=== PATIENT | male | born 1950 | race Caucasian/White ===

== ENCOUNTER 2016-07-11 07:28 | Day surgery (SDC) | payer OTHER, MEDICARE ==
[2016-07-10 10:57] VITALS: BMI 32.5
--- NOTE | 2016-07-11 06:20 | HP ---
History & Physical Update - History History: No Change - Physical Physical: No Change - Assessment Assessment: No Change - Plan Plan: No Change
[~2016-07-11 07:28] MED LIST: CYCLOPENTOLATE HCL 1% OPHTH SOLN 2 ML BOTTLE OP SCH; MOXIFLOXACIN HCL 0.5% OPHTHALMIC 3 ML BOTTLE OP SCH; PHENYLEPHRINE 2.5% OPHTH SOLN 15 ML BOTTLE OP SCH; TOBRAMYCIN/DEXAMETHASONE OPHTH. OINTMENT 1 TUBE OD ONE; TROPICAMIDE 1% OPHTH SOLN 15 ML BOTTLE OP SCH
[2016-07-11] MEDS ORDERED: MOXIFLOXACIN HCL 0.5% OPHTHALMIC 3 ML BOTTLE ONE (07:38)
[2016-07-11] MEDS ORDERED: TROPICAMIDE 1% OPHTH SOLN 15 ML BOTTLE ONE (07:38)
[2016-07-11] MEDS ORDERED: CYCLOPENTOLATE HCL 1% OPHTH SOLN 2 ML BOTTLE ONE (07:38)
[2016-07-11] MEDS ORDERED: PHENYLEPHRINE 2.5% OPHTH SOLN 15 ML BOTTLE ONE (07:39)
[2016-07-11 07:56] VITALS: TEMP 97.9
[2016-07-11] MEDS ORDERED: PROPOFOL 20 ML ONE (08:58)
[2016-07-11] MEDS ORDERED: MIDAZOLAM HCL 2 MG/2 ML SINGLE DOSE VIAL ONE (08:58)
[2016-07-11] MEDS ORDERED: LIDOCAINE HCL/PF 2% SDV 5ML VIAL ONE (08:58)
[2016-07-11] MEDS ORDERED: TETRACAINE 0.5% OPHTH SOLN 2 ML BOTTLE TP ONE (09:08)
[2016-07-11] MEDS ORDERED: LIDOCAINE HCL/PF 2% SDV 5ML VIAL INF ONE (09:13)
[2016-07-11] MEDS ORDERED: BUPIVACAINE HCL/PF 0.75% 10 ML VIAL RB ONE (09:13)
[2016-07-11] MEDS ORDERED: POVIDONE-IODINE 5% OPHTHALMIC PREP 30 ML SOLUTION OD ONE (09:16)
[2016-07-11] MEDS ORDERED: TRYPAN BLUE 0.5 ML DISP.SYRIN IO ONE (09:23)
[2016-07-11] MEDS ORDERED: BSS (NA/CA/MG/K) BALANCED SALT SOLUTION OPHTH SOLN 15 ML BOTTLE OD ONE (09:23)
[2016-07-11] MEDS ORDERED: LIDOCAINE HCL 1% PRESERVATIVE FREE - 30ML VIAL IO ONE (09:23)
[2016-07-11] MEDS ORDERED: CHONDROITIN SU A/HYALUR SOD 1 KIT IO ONE (09:23)
[2016-07-11] MEDS ORDERED: EPINEPHrine 1:1,000 1 MG/1 ML - 30ML VIAL (INJECTION) SQ ONE (09:29)
[2016-07-11] MEDS ORDERED: TOBRAMYCIN/DEXAMETHASONE OPHTH. OINTMENT 1 TUBE OD ONE (09:43)
[2016-07-11 10:34] VITALS: BP 130/84; PULSE 72
--- NOTE | 2016-07-11 15:08 | OP ---
DATE OF OPERATION: 07/11/2016 SURGEON: Navi Colorado MD PREOPERATIVE DIAGNOSIS: Cataract, right eye. OPERATION: Phacoemulsification and intraocular lens implantation, right eye. POSTOPERATIVE DIAGNOSIS: Cataract, right eye. ANESTHESIA: Local with intravenous sedation. COMPLICATIONS: None. BLOOD LOSS: None. SPECIMEN: None. BRIEF HISTORY: The patient is a 65-year-old man with a past medical history of asthma and cardiac disease, who presented with decreased vision in the right eye down to 20/400 due to a 2 to 3+ nuclear sclerotic lens with anterior vacuolar changes. After the risks, benefits and alternatives to cataract surgery were discussed with the patient, he consented to the surgery for the right eye. DESCRIPTION: The patient was brought to the operating room and administered retrobulbar block after receiving intravenous sedation. He was then prepped and draped in the usual sterile fashion and an eyelid speculum was inserted in the right eye. A paracentesis was made and the anterior chamber was inflated with nonpreserved lidocaine followed by injection of air, trypan blue dye, and Viscoat, due to dense anterior cortical changes limiting the anterior capsule view. A groove was made in the temporal clear cornea which was tunneled forward with a crescent blade. The anterior chamber was entered with a 2.75 keratome. The cystotome was used to make an incision in the center of the capsule and a continuous curvilinear capsulorrhexis was created. The lens was hydrodissected until it was found to rotate freely within the capsular bag. Phacoemulsification was then used to remove the lens in its entirety. Irrigation and aspiration was used to remove residual cortical material. The anterior chamber and capsular bag were reinflated with ProVisc and a 19.0 diopter SN60WF AcrySof intraocular lens was injected into the capsular bag using the [place] injector. The lens was dialed into place using a [place]ins[place] hook. Irrigation and aspiration was used to remove residual viscoelastic. The wound was stromally hydrated until it was found to be watertight and the eye within an appropriate pressure. The eyelid speculum was removed from the eye and TobraDex ointment and a patch and shield were placed over the right eye. The patient was transferred to the recovery room in stable condition and will follow up tomorrow. Daniel [id number] MTDD
== END 2016-07-11 14:39 | disposition home or self-care (01) ==
LOC: JASU-SURG 07:28
PROVIDERS: ATTEND Ophthalmology
PROC: 08RJ3JZ Replacement of Right Lens with Synthetic Substitute, Percutaneous Approach (ICD-10-PCS; principal; 2016-07-11 09:00)
DX: H25.11 Age-related nuclear cataract, right eye (principal); H18.891 Other specified disorders of cornea, right eye

== ENCOUNTER 2017-06-12 08:43 | Day surgery (SDC) | payer OTHER, MEDICARE ==
[2017-06-11 09:40] VITALS: BMI 32.5
--- NOTE | 2017-06-12 05:59 | HP ---
History & Physical Update - History History: No Change (see H&P in chart, [place]) - Physical Physical: No Change (see H&P in chart, [place]) - Assessment Assessment: No Change (see H&P in chart, [place]) - Plan Plan: No Change (see H&P in chart, [place])
[~2017-06-12 08:43] MED LIST changes: -CYCLOPENTOLATE HCL 1% OPHTH SOLN 2 ML BOTTLE OP SCH; -MOXIFLOXACIN HCL 0.5% OPHTHALMIC 3 ML BOTTLE OP SCH; -PHENYLEPHRINE 2.5% OPHTH SOLN 15 ML BOTTLE OP SCH; +TOBRA 0.3%/DEXAMETH 0.1% OPHTHALMIC SUSP 2.5 ML BTL OS ONE; -TOBRAMYCIN/DEXAMETHASONE OPHTH. OINTMENT 1 TUBE OD ONE; -TROPICAMIDE 1% OPHTH SOLN 15 ML BOTTLE OP SCH
[2017-06-12] MEDS ORDERED: MOXIFLOXACIN HCL 0.5% OPHTHALMIC 3 ML BOTTLE ONE (09:01)
[2017-06-12] MEDS ORDERED: TROPICAMIDE 1% OPHTH SOLN 15 ML BOTTLE ONE (09:01)
[2017-06-12] MEDS ORDERED: PHENYLEPHRINE 2.5% OPHTH SOLN 15 ML BOTTLE ONE (09:01)
[2017-06-12] MEDS ORDERED: CYCLOPENTOLATE HCL 1% OPHTH SOLN 2 ML BOTTLE ONE (09:01)
[2017-06-12] MEDS: CYCLOPENTOLATE HCL 1% OPHTH SOLN 2 ML BOTTLE OP SCH ×2 (09:05→09:10)
[2017-06-12] MEDS: PHENYLEPHRINE 2.5% OPHTH SOLN 15 ML BOTTLE OP SCH ×2 (09:05→09:10)
[2017-06-12] MEDS: MOXIFLOXACIN HCL 0.5% OPHTHALMIC 3 ML BOTTLE OP SCH ×2 (09:05→09:10)
[2017-06-12] MEDS: TROPICAMIDE 1% OPHTH SOLN 15 ML BOTTLE OP SCH ×2 (09:05→09:10)
[2017-06-12 09:20] VITALS: TEMP 97.9
[2017-06-12] MEDS ORDERED: MIDAZOLAM HCL 2 MG/2 ML SINGLE DOSE VIAL ONE (10:02)
[2017-06-12] MEDS ORDERED: PROPOFOL 20 ML ONE (10:02)
[2017-06-12] MEDS ORDERED: TETRACAINE 0.5% OPHTH SOLN 2 ML BOTTLE OS ONE (10:14)
[2017-06-12] MEDS ORDERED: BUPIVACAINE HCL/PF 0.75% 10 ML VIAL RB ONE (10:18)
[2017-06-12] MEDS ORDERED: LIDOCAINE HCL/PF 2% SDV 5ML VIAL INF ONE (10:18)
[2017-06-12] MEDS ORDERED: POVIDONE-IODINE 5% OPHTHALMIC PREP 30 ML SOLUTION OS ONE (10:22)
[2017-06-12] MEDS ORDERED: CHONDROITIN SU A/HYALUR SOD 1 KIT IO ONE (10:28)
[2017-06-12] MEDS ORDERED: BSS (NA/CA/MG/K) BALANCED SALT SOLUTION OPHTH SOLN 15 ML BOTTLE OS ONE (10:28)
[2017-06-12] MEDS ORDERED: LIDOCAINE HCL 1% PRESERVATIVE FREE - 30ML VIAL IO ONE (10:28)
[2017-06-12] MEDS ORDERED: EPINEPHrine/PF 1 MG/1 ML (1:1,000) AMPULE SQ ONE (10:33)
[2017-06-12] MEDS ORDERED: TOBRAMYCIN/DEXAMETHASONE OPHTH. OINTMENT 1 TUBE OS ONE (10:52)
[2017-06-12] MEDS ORDERED: oxyCODONE HCL 5 MG TABLET PO PRN (11:08)
[2017-06-12] MEDS ORDERED: ACETAMINOPHEN 325 MG TABLET (FP) PO PRN (11:08)
[2017-06-12] MEDS ORDERED: ONDANSETRON 4 MG/2 ML VIAL IVPUSH PRN (11:08)
[2017-06-12] MEDS ORDERED: LACTATED RINGERS SOLUTION 1,000 ML IV SCH (11:15)
--- NOTE | 2017-06-12 12:40 | OP ---
DATE OF OPERATION: 06/12/2017 SURGEON: Navi Colorado MD PREOPERATIVE DIAGNOSIS: Cataract, left eye. OPERATION: Phacoemulsification and intraocular lens implantation, left eye. POSTOPERATIVE DIAGNOSIS: Cataract, left eye. ANESTHESIA: Local with intravenous sedation. COMPLICATIONS: None. BLOOD LOSS: None. SPECIMEN: None. BRIEF HISTORY: The patient is a 66-year-old man with a past medical history of cardiac disease who presents with decreased vision in the left eye down to a best corrected visual acuity of 20/40. After the risks, benefits, and alternatives to cataract surgery were discussed with the patient, he consented to surgery for the left eye. DESCRIPTION OF PROCEDURE: The patient was brought to the operating room and administered retrobulbar block after receiving intravenous sedation. He was then prepped and draped in the usual sterile fashion, and an eyelid speculum was inserted in the left eye. A paracentesis was made, and the anterior chamber was inflated with nonpreserved lidocaine. This was followed by injection of Viscoat. A groove was made in the supratemporal clear cornea, which was tunneled forward with a crescent blade. The anterior chamber was entered with a 2.75 keratome. The cystotome was used to make an incision in the center of the capsule, and a continuous curvilinear capsulorrhexis was created. The lens was hydrodissected until it was found to rotate freely within the capsular bag. Phacoemulsification was then used to remove the lens in its entirety. Irrigation and aspiration was used to remove residual cortical material. The anterior chamber and capsular bag were reinflated with Provisc, and a 17.5 diopter SN60WF AcrySof intraocular lens was injected into the capsular bag using the [place] injector. The lens was dialed into place using a Sinskey hook. Irrigation and aspiration was used to remove residual viscoelastic. The wound was stromally hydrated until it was found to be watertight and the eye was at an appropriate pressure. The eyelid speculum was removed from the eye, and Tobradex drops and a patch and shield were placed over the left eye. The patient was transferred to the recovery room in stable condition and will follow up tomorrow. Daniel [id number] MTDD
[2017-06-12 15:10] VITALS: BP 151/79; PULSE 53
== END 2017-06-12 12:00 | disposition home or self-care (01) ==
LOC: JASU-SURG 08:43
PROVIDERS: ATTEND Ophthalmology
PROC: 08RK3JZ Replacement of Left Lens with Synthetic Substitute, Percutaneous Approach (ICD-10-PCS; principal; 2017-06-12 10:00)
DX: H26.9 Unspecified cataract (principal)